=== PATIENT | male | born 1955 | race Caucasian/White ===

== ENCOUNTER 2025-01-12 23:27 | Emergency (ER) | payer MEDICARE ==
[~2025-01-12] VITALS: Ht 172.7 cm; Wt 68.0 kg
[~2025-01-12 23:27] MED LIST: CLON1 PO; Daily Multivit1 EAC2 PO; IBUPROFEN200 MG PO; IPRAOI; LOVA40 PO; OMEP10ER PO; ZALE10 PO
[2025-01-12] MEDS ORDERED: GABA600 PO (23:40)
[2025-01-12] MEDS ORDERED: TAMS.4ER PO (23:41)
[2025-01-12] MEDS ORDERED: Trazodone HCl300 MG PO (23:41)
[2025-01-12] MEDS ORDERED: RED YEAST RICE55 MG PO (23:42)
[2025-01-12 23:48] LABS: BASOPHILS ABSOLUTE AUTO 0.06 K/mm3 (0.00-0.23); BASOPHILS PERCENT AUTO 1 % (0-2); EOSINOPHILS ABSOLUTE AUTO 0.18 K/mm3 (0.00-0.68); EOSINOPHILS PERCENT AUTO 3 % (0-6); Hematocrit 44.8 % (37.0-53.0); Hemoglobin 15.8 g/dL (13.5-17.5); IMMATURE GRAN ABSOLUTE AUTO 0.01 K/mm3 (0.00-0.10); IMMATURE GRAN PERCENT AUTO 0 % (0-1); LYMPHOCYTES ABSOLUTE AUTO 1.85 K/mm3 (0.84-5.20); LYMPHOCYTES PERCENT AUTO 28 % (21-46); MONOCYTES ABSOLUTE AUTO 0.48 K/mm3 (0.16-1.47); MONOCYTES PERCENT AUTO 7 % (4-13); Mean Corpuscular HGB Conc 35.3 g/dL (31.5-36.5); Mean Corpuscular Volume 93 fL (80-100); NEUTROPHILS ABSOLUTE AUTO 4.07 K/mm3 (1.96-9.15); NEUTROPHILS PERCENT AUTO 61 % (41-73); NRBC ABSOLUTE 0.00 K/mm3 (0.00-0.02); NRBC Auto 0.0 /100 WBC (0.0-0.2); Platelet Count 221 K/mm3 (150-400); RDW Coefficient Variation 12.1 % (11.7-14.2); RDW Standard Deviation 41.9 fL (35.1-46.3)
[2025-01-13 00:27] LABS: Alanine Aminotransfer (ALT/SGP 41.0 U/L (12-78); Albumin, Blood 3.6 g/dL (3.4-5.0); Albumin/Globulin Ratio 1.1 (0.8-1.8); Anion Gap 9.0 mmol/L (3-11); Aspartate Aminotrans (AST/SGOT 31.0 U/L (12-37); Bilirubin, Total 0.3 mg/dL (0.1-1.0); Blood Urea Nitrogen 12.0 mg/dL (8-24); CO2, Blood 25.0 mmol/L (21-32); Calcium, Blood 8.9 mg/dL (8.5-10.1); Chloride, Blood 107.0 mmol/L (98-108); Creatinine, Blood 0.7 mg/dL (0.60-1.20); Globulin, Blood 3.2 g/dL (2.2-4.0); Glucose, Blood 101.0 mg/dL (70-99); Potassium, Blood 3.5 mmol/L (3.5-5.5); Sodium, Blood 137.0 mmol/L (136-145); Total Protein, Blood 6.8 g/dL (6.4-8.2)
[2025-01-13] MEDS ORDERED: NS 1,000 ML IV SCH (01:25)
[2025-01-13 01:56] LABS: Ethanol (Alcohol), Blood, Med 144.0 mg/dL; Magnesium, Blood 2.2 mg/dL (1.6-2.4); Phosphorus, Blood 3.5 mg/dL (2.5-4.9)
[2025-01-13 02:14] VITALS: BP 135/67
== END 2025-01-13 02:28 | disposition home or self-care (01) ==
LOC: ER 23:27
PROVIDERS: Emergency Medicine
DX: F10.929 Alcohol use, unspecified with intoxication, unspecified (principal); R55 Syncope and collapse; F12.90 Cannabis use, unspecified, uncomplicated; K21.9 Gastro-esophageal reflux disease without esophagitis; G47.00 Insomnia, unspecified; F17.200 Nicotine dependence, unspecified, uncomplicated; Z79.899 Other long term (current) drug therapy
CPT/HCPCS: 80053; 80320; 83605; 83735; 84100; 85025; 93005; 93010; 96360; 99284-25; J7030